=== PATIENT | male | born 1995 | race Caucasian/White ===

== ENCOUNTER 2019-05-31 17:11 | Emergency (ER) | payer BC, OTHER ==
--- NOTE | 2019-05-31 17:48 | EDM.PDOC ---
ED HPI GENERAL MEDICAL PROBLEM - General Chief Complaint: General Stated Complaint: HIT IN THE HEAD WITH A BOARD Time Seen by Provider: 05/31/19 17:20 Source of Information: Reports: Patient History Limitations: Reports: No Limitations - History of Present Illness INITIAL COMMENTS - FREE TEXT/NARRATIVE: The patient presents to the emergency room after being accidentally struck in the head with a board at work. He denies any loss of consciousness, nausea, neck pain and otherwise feels well. He is certain that his tetanus status is up -to-date. He mainly came in due to a small laceration of his right parietal scalp. ED ROS GENERAL - Review of Systems Review Of Systems: See Below HEENT: Reports: No Symptoms Neurological: Reports: No Symptoms ED EXAM, GENERAL - Physical Exam Exam: See Below Exam Limited By: No Limitations General Appearance: Alert, WD/WN, No Apparent Distress Ears: Normal External Exam Nose: Normal Inspection Throat/Mouth: Normal Inspection Head: Normocephalic, Other (He was noted to have a 2 cm linear laceration of superficial depth that was carefully inspected with good lighting after being scrubbed by the RN with chlorhexidine solution and revealed no contamination or foreign body. After that 2 ojselin of hair in 2 different locations of the laceration were twisted together and a drop of Dermabond was placed on each this resulted in excellent wound closure a couple drops of Dermabond was placed on the wound is well there was no underlying bony tenderness and this provided for adequate approximation and was well-tolerated by the patient) Neck: Normal Inspection, Non-Tender Respiratory/Chest: No Respiratory Distress Back Exam: Normal Inspection, Full Range of Motion. No: Vertebral Tenderness Extremities: Normal Capillary Refill Neurological: Alert, Oriented, Normal Cognition Psychiatric: Normal Affect, Normal Mood Skin Exam: Warm, Dry Course - Vital Signs Last Recorded V/S: Instructed the patient's father and symptoms of a head injury and reasons to return including this and/or any symptoms of scalp infection. Departure - Departure Time of Disposition: 17:30 Disposition: Home, Self-Care 01 Condition: Good Clinical Impression: Laceration of scalp Qualifiers: Encounter type: initial encounter Qualified Code(s): S01.01XA - Laceration without foreign body of scalp, initial encounter - Discharge Information Instructions: Laceration Care, Adult, Head Injury, Adult, [id number]
== END 2019-05-31 17:50 | disposition home or self-care (01) ==
LOC: LB.ED 17:11
DX: S01.01XA Laceration without foreign body of scalp, initial encounter (principal); W22.8XXA Striking against or struck by other objects, initial encounter; Y99.0 Civilian activity done for income or pay
CPT/HCPCS: 12001; 99283